=== PATIENT | female | born 1930 | race Caucasian/White ===

== ENCOUNTER 2018-10-08 17:47 | Inpatient (IN) ==
[2018-10-08] MEDS ORDERED: NACL 3% 500 ML IV SCH (21:13)
[2018-10-08] MEDS ORDERED: SAMSCA PO ONE (21:13)
[2018-10-08] MEDS ORDERED: CULTURELLE PO ONE (21:13)
[2018-10-08] MEDS: WELCHOL PO SCH (23:08)
[2018-10-08] MEDS: COMBIGAN OPHTH SOLN BOTH EYES SCH (23:09)
[2018-10-08 23:39] LABS: AGAP 13; BUN 13 mg/dL (8-22); CALCIUM 8.7 mg/dL (8.8-10.2); CHLORIDE 77 mmol/L (98-107); CK PROFILE 69 U/L (24-173); COSMO 236; CREATININE 0.4 mg/dL (0.5-0.9); ESTIMATED GFR > 60; GLUCOSE 119 mg/dL (70-104); TCO2 26 mmol/L (25-35)
[2018-10-08 23:44] LABS: POTASSIUM 5.4 mmol/L (3.5-5.1); SODIUM 116 mmol/L (136-145)
[2018-10-09] MEDS: NACL 3% 500 ML IV SCH ×3 (00:52→22:06)
--- NOTE | 2018-10-09 05:55 | Diag Imaging Result Doc PS360 ---
EXAM: CHEST-2 VIEWS HISTORY: SOB TECHNIQUE: Chest two views COMPARISON: 08/14/2018 FINDINGS: The lungs are hyperexpanded. There are small bilateral pleural effusions, left larger than right. There is mild pulmonary edema. Minimal cardiomegaly. No change in the left-sided portacatheter. No pneumothorax. There are small lung nodules. Mild scoliosis. IMPRESSION: 1.Emphysema 2.Small pleural effusions with mild pulmonary edema 3.Small lung nodules Electronically signed by Manan Orourke 10/09/2018 5:53 AM
--- NOTE | 2018-10-09 07:15 | EKG Report ---
Test Performed on : 10/08/2018 9:31:48 PM Test Reason : chest pain Blood Pressure : / mmHG Vent. Rate : 082 BPM Atrial Rate : 082 BPM P-R Int : 142 ms QRS Dur : 080 ms QT Int : 384 ms P-R-T Axes : 083 043 072 degrees QTc Int : 448 ms Sinus rhythm. with premature supraventricular complexes. Otherwise normal ECG When compared with ECG of 07-OCT-2015 16:31, premature supraventricular complexes. are now present T waves are prominent, consider hyperkalemia Confirmed by Vj MARTEL, Vincent Minor ([id number]) on 10/09/2018 5:51:39 PM
[2018-10-09 07:37] LABS: HEMATOCRIT 27.7 % (37.0-47.0); HEMOGLOBIN 9.2 g/dL (12.0-16.0); IMM GRAN# 0.06 X1000 (0.0-0.04); IMM GRAN% 3.4 % (0.0-0.5); LYMPH# 0.58 X1000 (1.2-3.4); MCH 28.5 PG (27-31); MCHC 33.2 g/dL (33-37); MCV 85.8 FL (81-99); MONO% 5.7 % (1.7-9.3); NEUT# 1.02 X1000 (1.4-6.5); NEUT% 57.9 % (42.2-75.2); PLT 173 X1000 (130-400); RBC 3.23 XMIL (4.2-5.4); RDW 14.9 % (11.5-14.5); WBC 1.76 X1000 (4.8-10.8)
[2018-10-09 07:51] LABS: AGAP 14; BUN 12 mg/dL (8-22); CALCIUM 9.2 mg/dL (8.8-10.2); CHLORIDE 83 mmol/L (98-107); COSMO 246; CREATININE 0.5 mg/dL (0.5-0.9); ESTIMATED GFR > 60; GLUCOSE 106 mg/dL (70-104); POTASSIUM 4.3 mmol/L (3.5-5.1); SODIUM 122 mmol/L (136-145); TCO2 25 mmol/L (25-35)
[2018-10-09 08:00] LABS: BANDS 12 % (0-1); LYMPHS 30 % (21-51); MONO 6 % (1-9); SEGS 52 % (42-75)
[2018-10-09 08:01] LABS: HYPOCHROM 1+; POIKILOCYTOSIS 1+
[2018-10-09] MEDS ORDERED: SAMSCA PO ONE (08:26)
[2018-10-09] MEDS: WELCHOL PO SCH ×3 (09:59→20:57)
[2018-10-09] MEDS: LUMIGAN 0.01% OPH SOLUTION OPH SCH (10:00)
[2018-10-09] MEDS: COMBIGAN OPHTH SOLN BOTH EYES SCH ×2 (10:00→20:50)
--- NOTE | 2018-10-09 13:49 | ECHO REPORT ---
ORDER DATE: 10/08/2018 INDICATION: Embolism. FINDINGS: 1. The right atrium appears normal in size at 3.2 cm. 2. Mild tricuspid regurgitation. RV systolic pressure of 59. 3. Normal RV size and systolic function. 4. Mild pulmonic insufficiency. 5. Suggestion of severe left atrial enlargement with a volume index of 50. 6. Heavy mitral annular calcification. Moderate mitral regurgitation. No clear evidence of significant mitral stenosis. 7. Normal LV size. End-diastolic dimension of 3.6. Mild left ventricular hypertrophy with a posterior and interventricular septal wall thickness of 1.3 and 1.4 cm respectively. Normal LV systolic function. Estimated EF in the 55% to 60% range. 8. There was heavy calcification of the aortic valve with suggestion of severe aortic stenosis. The peak gradient across the valve is 155 with a mean of 80. The valve area by continuity equation is 0.4 cm2. There is no clear evidence of insufficiency. 9. Aorta appears normal on visualized segments. 10. There is no pericardial effusion, but there does appear to be a pleural effusion present. cc: MD Nehemias Manning MD
--- NOTE | 2018-10-09 14:49 | HEMO/ONC CONSULTATION ---
DATE: 10/09/2018 CHIEF COMPLAINT: We are being consulted for further management of patient's CLL. HISTORY OF PRESENT ILLNESS: Ms. Serrano is a pleasant 88-year-old female that presented to the office yesterday complaining of increased amount of fatigue, continued feeling worse over the past few days. The patient was seen by primary medical doctor's office the week before due to same complaints of shortness of breath, and was told at that time had a chest x-ray and admitted for pneumonia. The patient felt like she could hopefully try taking antibiotics at home will continue to get better at that time. If she got worse, she would let them know. The patient symptoms continued to get worse, shortness of breath continued to get worse, and fatigue continued to get worse. The patient overall continued to decline and yesterday was sent to the hospital for further evaluation and treatment at that time. The patient is well known to us in our clinic where she follows up for her recurrent CLL, idiopathic thrombocytopenia and hypogammaglobulinemia. The patient has received multiple lines of therapy in the past. The patient was started on her on 12/23/2015 and stopped in on . The patient was then started back on Imbruvica on 05/23/2007 due to worsening lymphadenopathy and left supraclavicular axillary. The patient then had progression of disease and changed to Venclexta on 04/03/2018 and rituximab was added as well. The patient has currently been on Venclexta and received her last dose of rituximab on 09/26/2018. The patient also continues to get her Octagam every 4 weeks and received her last dose of Octagam 09/25/2018. PAST MEDICAL HISTORY: Relapsed refractory CLL, hypogammaglobulinemia with recurrent infections, history of ITP and Sjogren syndrome. FAMILY HISTORY: Noncontributory. SOCIAL HISTORY: Denies any alcohol, tobacco, or illicit drug use. ALLERGIES: Allopurinol, sulfa, Levaquin. CURRENT MEDICATIONS: As in the chart. REVIEW OF SYSTEMS: As per HPI. PHYSICAL EXAM: Vital Signs: Temperature 97.3 degrees, heart rate 81, respiratory rate 28, blood pressure is 126/59, satting 99% on room air. General: Patient is awake, lying in bed, no acute distress noted. HEENT: Anicteric. Pupils PERRLA. Mucous membranes appear to be dry. Neck: Supple. Trachea midline. No JVD. Lymphatic survey: No palpable adenopathy in axillary. Chest: Bilateral breath sounds diminished bilaterally. Cardiovascular: Normal S1 and S2. Regular rate and rhythm. Abdomen: Soft, nontender. Bowel sounds present in all 4 quadrants. Skin: Warm, dry, and intact. Neurologic: Alert and oriented x3. No focal deficits noted. LABORATORY DATA: White blood cell count is 1.76, hemoglobin 9.2, hematocrit 27.7, platelets are 173. Sodium is 122, potassium 4.3, BUN 12, creatinine 0.5. RADIOLOGY RESULTS: Chest x-ray shows emphysema, small pleural effusions with mild pulmonary edema and some small lung nodules. ASSESSMENT AND PLAN: 1. Recurrent chronic lymphocytic leukemia, ZAP-70 positive: The patient has been on venclexta and Rituxan; last dose of Rituxan was on 09/26/2018. Continue to monitor closely. 2. Hyponatremia: Patient continues intravenous fluids as ordered by primary medical team. 3. Neutropenia: Continue to monitor white blood cell counts very closely. Continue to monitor any fevers greater than 100.5. 4. Hypogammaglobulinemia with Morganella, sepsis or recurrent infections: The patient received IVIG every 4 weeks. Next dose will be due 10/23/2018. Plan of care discussed with Dr. Huerta. Dictated by FAWAD Basurto for Sandoval Huerta MD Patient seen and examined. As above. Patient with CLL, has gone through multiple lines of chemotherapy. Lately her CLL has been very troubling. She is currently on rituximab and Venclexta. She seems to be responding. Lymphadenopathy is slowly decreasing. She is admitted with severe hyponatremia. Further management per Dr. Rey. Sandoval Huerta M.D. cc: FAWAD Basurto MD Jagan Reddy, MD MTDD
--- NOTE | 2018-10-09 15:43 | HISTORY AND PHYSICAL ---
SUBJECT: 1. Shortness of breath, cough, wheezing, swelling of feet. 2. Altered mental status. 3. Hyponatremia. HPI: She is an 88-year-old pleasant white female with known history of CLL with lymphoma under the chemotherapy by DR. Huerta. She was evaluated in my office on for above symptoms. Apparently she has mild CHF. Patient was given extra Lasix and follow up as an outpatient. She has significant aortic stenosis murmur and she denies of any syncope, chest pain and apparently today at DR. Huerta's office patient has significant hyponatremia, altered mental status, persistent cough, admitted to the hospital. Patient was admitted directly from DR. Huerta's office. Patient was seen in the emergency room and she slightly edematous in the legs. Slightly improving. As a result hospital admission was warranted. PAST MEDICAL HISTORY: Aortic stenosis, hypertension, glaucoma, sicca syndrome , CLL with lymphoma, lumbar spinal stenosis, recurrent C difficile colitis. PAST SURGICAL HISTORY: Benign breast biopsy, benign right knee arthroscopy status post total knee arthroplasty, bilateral cataract surgery, Port-A-Cath on the left side. ALLERGIES: Allopurinol, IV contrast, Levaquin and sulfa. 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 FAMILY HISTORY: Father of stomach cancer at 44, mom of heart failure. HEALTH MAINTENANCE: Living will, DNR. Flu vaccine 2018, pneumococcal vaccine 2016, last mammography, DEXA scan 2016. MEDICATIONS: Reported are Combigan drops as needed, Lumigan 1 drop q.8, Uloric 40 daily, Culturelle 1 capsule daily, Lotemax 1 drop every other day, Lasix 40 mg as directed, Welchol 625 daily, Venclexta [address] Huerta along with Rituxan every 4 weeks. REVIEW OF SYSTEMS: HEENT: No headache. No vision problem. No earache. No sore throat. Neck: No neck pain. Cardiopulmonary: Persistent cough, shortness of breath , wheezing, mild swelling of feet . GI: No nausea, vomiting, abdominal pain, no altered bowel habits. Diarrhea is much improved after treating with Dificid for C difficile infection. : No history of hesitancy, frequency, dysuria, lymphadenopathy, left side of the axilla node is not improving and no significant peripheral adenopathy. Neurologic: No focal symptoms or weakness. PHYSICAL EXAMINATION: Temperature 97 degrees, pulse is 80, vitals are stable, 100% on room air. HEENT: Atraumatic, normocephalic. Pupils equal, reactive to light. TMs are normal. Nose and throat within normal limits. NECK: Supple. JVD is elevated. CHEST: Bilateral air entry. HEART: Sounds are regular with a loud systolic murmur all over the precordial area increasing with expiration. BELLY: Is soft, nontender. No hepatosplenomegaly. Left axilla lymph node palpable and trace pedal edema. No obvious neurological deficits. INVESTIGATIONS: None reported from Dr. Huerta's office. ASSESSMENT AND PLAN: 1. An 88-year-old white female admitted to the hospital with congestive heart failure, diastolic dysfunction with underlying severe aortic stenosis. Will check the echocardiography, follow up on the labs. Will give 1 dose of Samsca and hypertonic saline for hyponatremia, repeat the labs in the morning. 2. Chronic lymphocytic leukemia with lymphoma stable. 3. Clostridium difficile colitis recurrent, stable. 4. Reconcile home medicines. 5. Will also get echocardiography. Discussed with the family at bedside. She does have living will, do not resuscitate and consult with Dr. Huerta and will follow up. cc: Nehemias Rey MD [facility]
--- NOTE | 2018-10-10 00:18 | PROGRESS NOTE ---
DATE: 10/09/2018 SUBJECTIVE: The patient is not doing well. Confused. Shortness of breath, PND, orthopnea, hypoxemia, and mild swelling. She is slowly declining in performance status. EXAM: Vital Signs: Temperature is 98 degrees, pulse is 86, blood pressure is stable. HEENT: Within normal limits. Neck: JVD is elevated. Chest: Bilateral air entry. Heart: Sounds are regular, with a loud systolic murmur in the aortic area. Abdomen: Belly is soft, nontender. Extremities: 1+ edema. LABS: White cell count 1.6, hematocrit 27, platelets 173,000. Sodium 132, potassium 4.3, BUN 12, creatinine 0.5. Urine osmolality is low. ProBNP 5000. Urine sodium 19. EKG is normal sinus, nothing acute. Echocardiography findings: Severe aortic stenosis, [id number] MR, with severe enlargement of left atrium, with ejection fraction 55 to 60 percent. Chest x-ray: Bilateral pleural effusion. ASSESSMENT AND PLAN: 1. Acute decompensated diastolic heart failure, with severe aortic stenosis. Needs a valve replacement. Discussed with the family. Patient is not a candidate for transcatheter aortic valve replacement because of decline in performance status. 2. Congestive heart failure. Continue on Samsca. 3. Hyponatremia. Gentle hypertonic saline. Check the SMA-7 in the morning. 4. Living will, DNR. 5. Recurrent C. difficile colitis. Stable. 6. Mental confusion due to metabolic encephalopathy. Continue on Seroquel as needed. LEVEL OF DOCUMENTATION: 25 minutes. cc: Nehemias Rey MD
[2018-10-10] MEDS: SEROQUEL PO PRN ×2 (00:46→21:39)
[2018-10-10 07:38] LABS: HEMATOCRIT 24.3 % (37.0-47.0); HEMOGLOBIN 7.6 g/dL (12.0-16.0); IMM GRAN# 0.24 X1000 (0.0-0.04); IMM GRAN% 18.5 % (0.0-0.5); LYMPH# 0.34 X1000 (1.2-3.4); LYMPH% 26.2 % (20.5-51.1); MCH 28.3 PG (27-31); MCHC 31.3 g/dL (33-37); MCV 90.3 FL (81-99); MONO# 0.09 X1000 (0.11-0.59); MONO% 6.9 % (1.7-9.3); MPV 8.8 FL (7.4-10.4); NEUT# 0.63 X1000 (1.4-6.5); NEUT% 48.4 % (42.2-75.2); PLT 133 X1000 (130-400); RBC 2.69 XMIL (4.2-5.4); RDW 15.2 % (11.5-14.5)
[2018-10-10 07:59] LABS: AGAP 11; BUN 11 mg/dL (8-22); CALCIUM 8.5 mg/dL (8.8-10.2); CHLORIDE 101 mmol/L (98-107); COSMO 278; CREATININE 0.5 mg/dL (0.5-0.9); ESTIMATED GFR > 60; GLUCOSE 156 mg/dL (70-104); POTASSIUM 3.8 mmol/L (3.5-5.1); SODIUM 138 mmol/L (136-145); TCO2 26 mmol/L (25-35)
--- NOTE | 2018-10-10 07:59 | Diag Imaging Result Doc PS360 ---
EXAM: CHEST-2 VIEWS INDICATION: hypoxia TECHNIQUE: 2 views COMPARISON: 10/08/2018 FINDINGS: The left chest port is in stable position. There has been interval development of a dense consolidation in the right upper lobe consistent with pneumonia. Pleural effusions and mild edema are essentially stable. Cardiac silhouette is stable. IMPRESSION: Interval development of right upper lobe pneumonia. Electronically signed by Rolando Oliva 10/10/2018 7:56 AM
[2018-10-10] MEDS: NACL 3% 500 ML IV SCH (08:16)
[2018-10-10] MEDS: COMBIGAN OPHTH SOLN BOTH EYES SCH ×2 (08:17→21:55)
[2018-10-10] MEDS: LUMIGAN 0.01% OPH SOLUTION OPH SCH ×2 (08:17→21:55)
[2018-10-10] MEDS: WELCHOL PO SCH ×3 (08:17→21:55)
[2018-10-10] MEDS ORDERED: LASIX IV ONE (08:19)
--- NOTE | 2018-10-10 08:52 | HEMO/ONC PROGRESS NOTE ---
DATE: 10/10/2018 SUBJECTIVE: Patient complains of still being extremely weak. She is still short of breath. Gets very short of breath with exertion still as well. The patient says she may feel slightly better overall though. OBJECTIVE: Vital Signs: Temperature 97.9 degrees, heart rate 88, respiratory rate 24, blood pressure is 131/71, and saturating 99% on nasal cannula. General: Patient is awake, sitting up in chair beside the bed. HEENT: Anicteric. Pupils PERRLA. Mucous membranes noted to be dry. Cardiovascular: S1, S2. Increased rate and rhythm. Chest: Bilateral breath sounds, diminished bilaterally. Abdomen: Soft, nontender. Bowel sounds present in all 4 quadrants. Neurologic: Alert and oriented x3. No focal deficits noted. LABORATORY DATA: White blood cell count is 1.30, hemoglobin 7.6, hematocrit 24.3, platelets are 133. ANC is 630. Potassium 3.8, sodium is 138, BUN 11, creatinine 0.5. ASSESSMENT AND PLAN: 1. Recurrent chronic lymphocytic leukemia, ZAP-70 positive: The patient has been on vincristine and Rituxan. Will continue to monitor closely at this time. 2. Hyponatremia: Sodium continues to improve. Continue recommendations per primary medical team. 3. Neutropenia: White blood cell count continues to drop. ANC count is down to 630. The patient will receive Neupogen daily at this time until ANC is greater than a 1000. Continue to monitor closely if fever is greater than 100.5. 4. Congestive heart failure: Continue recommendations per medical team. 5. Deep venous thrombosis prophylaxis: Patient will continue get out of bed as much as possible. The patient is started on Lovenox 30 mg daily. 6. Supportive care: Patient will continue protein shakes q.i.d. Physical therapy has been consulted to have patient be strength training and getting out of bed. Plan of care discussed with Dr. Huerta. Dictated by FAWAD Basurto for Sandoval Huerta MD Patient seen and examined. As above. Patient had worsening shortness of breath overnight. Chest x-ray revealed increasing pulmonary congestion. He has been on normal saline. That has been discontinued. Leg edema also has worsened. About 60 minutes ago, he received IV Lasix. He reports that her shortness of breath has improved in the meanwhile. Cardiology and pulmonary medicine has been consulted. Check CEA to make sure his cancer is not getting worse. Sandoval Huerta M.D. cc: FAWAD Basurto MD Jagan Reddy, MD [facility]
[2018-10-10] MEDS ORDERED: NEUPOGEN SUBQ SCH (09:00)
[2018-10-10] MEDS ORDERED: GRANIX SUBQ SCH (09:00)
[2018-10-10] MEDS: LOVENOX SUBQ SCH (11:38)
--- NOTE | 2018-10-11 03:44 | PROGRESS NOTE ---
DATE: 10/10/2018 SUBJECTIVE: The patient is not better. Last night, confused, shortness of breath. PHYSICAL EXAMINATION: Temperature is 98 degrees, pulse is 76, blood pressure is 119/50. HEENT: Within normal. JVD is elevated. Bilateral air entry. Heart sounds are regular with a loud systolic murmur. Belly is soft, nontender. Decreased edema. INVESTIGATIONS: White cell count 1.3, hematocrit 24, platelets 133,000. SMA-7 is normal. Chest x-ray: Worsening of the pleural effusion. ASSESSMENT AND PLAN: 1. Congestive heart failure with symptomatic aortic stenosis. Not a candidate for surgical intervention. 2. Hyponatremia, improving. Discontinue hypertonic saline. 3. Worsening of fluid. IV Lasix. 4. Pancytopenia due to chemotherapy. 5. Chronic lymphocytic leukemia with lymphoma. Hold on chemotherapy. The patient was given Granix. We will repeat the chest x-ray and the labs in the morning. Discussed the findings of the echo to the patient's family. 6. Living will, do not resuscitate. 7. Recurrent Clostridium difficile colitis, stable. Continue on probiotics. PROGNOSIS: Poor. LEVEL OF DOCUMENTATION: 25 minutes. cc: Nehemias Rey MD
[2018-10-11 06:55] LABS: HEMATOCRIT 22.6 % (37.0-47.0); IMM GRAN% 19.5 % (0.0-0.5); LYMPH% 26.3 % (20.5-51.1); MCH 28.2 PG (27-31); MCV 91.1 FL (81-99); MONO% 17.8 % (1.7-9.3); MPV 9.3 FL (7.4-10.4); NEUT% 36.4 % (42.2-75.2); PLT 105 X1000 (130-400); RBC 2.48 XMIL (4.2-5.4); RDW 15.2 % (11.5-14.5); WBC 1.18 X1000 (4.8-10.8)
[2018-10-11 06:56] LABS: IMM GRAN# 0.23 X1000 (0.0-0.04); LYMPH# 0.31 X1000 (1.2-3.4); MONO# 0.21 X1000 (0.11-0.59)
[2018-10-11 06:59] LABS: NEUT# 0.43 X1000 (1.4-6.5)
[2018-10-11 07:07] LABS: AGAP 12; BUN 11 mg/dL (8-22); CHLORIDE 92 mmol/L (98-107); COSMO 266; CREATININE 0.6 mg/dL (0.5-0.9); ESTIMATED GFR > 60; GLUCOSE 138 mg/dL (70-104); POTASSIUM 3.3 mmol/L (3.5-5.1); SODIUM 132 mmol/L (136-145); TCO2 28 mmol/L (25-35)
[2018-10-11 07:48] LABS: BANDS 4 % (0-1); LYMPHS 24 % (21-51); MONO 4 % (1-9); SEGS 64 % (42-75)
[2018-10-11] MEDS ORDERED: GRANIX SUBQ ONE (08:00)
[2018-10-11] MEDS ORDERED: LASIX IV ONE (08:08)
--- NOTE | 2018-10-11 08:11 | Diag Imaging Result Doc PS360 ---
EXAM: CHEST-2 VIEWS 10/11/2018 HISTORY: hypoxia TECHNIQUE: PA and lateral chest COMMENT: There are bilateral pleural effusions. There is dense alveolar opacity in the inferior portion of the right upper lobe. There is also opacity in both lower lobes. IMPRESSION: Bibasilar pneumonia and pleural effusions with right upper lobe pneumonia. This is not changed significantly since 10/10/2018. Electronically signed by Ki Edwards 10/11/2018 8:09 AM
--- NOTE | 2018-10-11 08:45 | HEMO/ONC PROGRESS NOTE ---
DATE: 10/11/2018 SUBJECTIVE: The patient is still complaining of feeling weak, still short of breath. The patient says short of breath improves when she gets out of bed and continues to sit up, not lying in bed. It is always worse in the mornings. OBJECTIVE: Vital Signs: Temperature 98.2 degrees, heart rate 94, respiratory 16, blood pressure 118/66, saturating 97% on nasal cannula. General: Patient is awake, sitting up in a chair beside the bed. HEENT: Anicteric. Pupils PERRLA. Mucous membranes dry. Chest: Bilateral breath sounds diminished bilaterally. Cardiovascular: Heart sounds regular with a loud murmur. Abdomen: Soft, nontender. Bowel sounds present in all 4 quadrants. Neurologic: Alert and oriented x3. No focal deficits noted. LABORATORY DATA: White cell count 1.18, hemoglobin 7.2, hematocrit 22.6, platelets are 105, ANC 430. Sodium 132, potassium 3.3, BUN 11, creatinine 0.6. ASSESSMENT AND PLAN: 1. Recurrent chronic lymphocytic leukemia, ZAP-70 positive. The patient will continue to monitor at this time. 2. Hyponatremia: Site continues to be stable. Continue recommendation by primary medical team. 3. Neutropenia: ANC down to 430. The patient will continue on her Neupogen daily. We will continue until patient's ANC is greater than a 1000. She will be continued to be monitor closely for any fevers greater than 100.5. 4. Congestive heart failure: Continue recommendations per primary medical team. 5. Supportive care: Continue to have patient drink protein shakes q.i.d. Continue with physical therapy. Continue to have patient get out of bed as much as possible. 6. Anemia: Hemoglobin and hematocrit continue to drop. The patient denies any signs of bleeding. Transfuse as needed. Dictated by FAWAD Basurto for Sandoval Huerta MD Patient seen and examined. As above. Patient has developed neutropenia. Hold Venclexta. Continue Neupogen until ANC recovery. She has critical symptomatic aortic stenosis. Prognosis is poor. We will discuss with Dr. Rey regarding long-term management. Family understands her prognosis. Sandoval Huerta M.D. cc: Nehemias Rey MD [facility]
[2018-10-11] MEDS: WELCHOL PO SCH ×3 (10:18→21:42)
[2018-10-11] MEDS: LOVENOX SUBQ SCH (10:21)
[2018-10-11] MEDS: COMBIGAN OPHTH SOLN BOTH EYES SCH ×2 (15:24→21:42)
[2018-10-11] MEDS ORDERED: KLOR-CON POWDER PACKET PO ONE (19:47)
[2018-10-11] MEDS ORDERED: SAMSCA PO ONE (20:00)
[2018-10-11] MEDS: LUMIGAN 0.01% OPH SOLUTION OPH SCH (21:42)
--- NOTE | 2018-10-12 00:19 | PROGRESS NOTE ---
DATE: 10/11/2018 SUBJECTIVE: The patient is not doing well. Unable to sleep. She has been on the recliner all day. She still has shortness of breath. I& O was not recording properly. Family was at bedside. I have seen the patient twice. Spent about more than 30 minutes at bedside with the patient's daughter about the echocardiography report, chest x-rays report. PHYSICAL EXAMINATION: Vital Signs: Temperature is 98 degrees, tachycardic. Blood pressure is 104/36. Patient barely able to go to the bathroom. She is very declining precipitously. Neck: JVD is elevated. Heart: Heart sounds are regular, with a loud systolic murmur throughout the precordial area. Abdomen: Belly is soft, nontender. Extremities: Unchanged lymphadenopathy in the left axilla. 2+ pedal edema. IMAGING DATA: Chest x-ray: Continued bilateral pleural effusion and right fluid in the major fissure. LABS: CBC: White cell count 1.1, hematocrit 22.6, platelets 105,000. SMA-7: Sodium 132, potassium 3.3, BUN and creatinine normal. ASSESSMENT AND PLAN: 1. Acute decompensated diastolic heart failure, with severe aortic stenosis. 2. Pancytopenia, due to chemotherapy. 3. Chronic lymphocytic leukemia, with lymphoma. 4. Recurrent C. difficile colitis. Stable. 5. Hypokalemia. Plan of care today: Continue fluid restriction, oxygen, and IV Lasix daily, along with the Samsca. Potassium replacement. 6. Seroquel for agitation. 7. DVT prophylaxis with Lovenox. 8. Glaucoma. Stable. 9. Continue IV Lasix. Check the labs in the morning. 10. Pancytopenia. Granix was given. 11. Severe aortic stenosis. She is not a candidate for TAVR. 12. Deconditioning. 13. Living will, DNR. 14. Continue to monitor her progress. 15. Family is ready for any dire situation if she does not improve. LEVEL OF DOCUMENTATION: 25 minutes. cc: Nehemias Rey MD MTDD
[2018-10-12 07:29] LABS: HEMATOCRIT 23.2 % (37.0-47.0); HEMOGLOBIN 7.2 g/dL (12.0-16.0); LYMPH# 0.25 X1000 (1.2-3.4); LYMPH% 22.1 % (20.5-51.1); MCH 28.1 PG (27-31); MCV 90.6 FL (81-99); MONO# 0.03 X1000 (0.11-0.59); MONO% 2.7 % (1.7-9.3); MPV 10.3 FL (7.4-10.4); NEUT# 0.85 X1000 (1.4-6.5); NEUT% 75.2 % (42.2-75.2); PLT 76 X1000 (130-400); RBC 2.56 XMIL (4.2-5.4); RDW 15.3 % (11.5-14.5); WBC 1.13 X1000 (4.8-10.8)
[2018-10-12 08:19] LABS: AGAP 13; BUN 16 mg/dL (8-22); CALCIUM 8.3 mg/dL (8.8-10.2); CHLORIDE 91 mmol/L (98-107); COSMO 270; CREATININE 0.6 mg/dL (0.5-0.9); ESTIMATED GFR > 60; GLUCOSE 145 mg/dL (70-104); SODIUM 133 mmol/L (136-145); TCO2 29 mmol/L (25-35)
--- NOTE | 2018-10-12 08:26 | HEMO/ONC PROGRESS NOTE ---
DATE: 10/12/2018 SUBJECTIVE: Patient up out of bed, sitting in a chair. The patient says she still feels weak, still slightly short of breath. The patient says she is slowly feeling stronger though. OBJECTIVE: Vital Signs: Temperature 97.4 degrees, heart rate 96, respiratory rate 24, blood pressure 95/45, saturation 95% on nasal cannula. General: The patient is awake , sitting up in the chair at the side of the bed. No acute distress noted. HEENT: Anicteric. PERRLA. Mucous membranes appear to be dry. Cardiovascular: S1, S2. Regular rate and rhythm. Chest: Breath sounds diminished bilaterally. Abdomen: Soft, nontender. Bowel sounds present in all 4 quadrants. Neurologic: Alert and oriented x3. No focal deficits noted. LABORATORY DATA: White blood cell count 1.13, hemoglobin 7.2, hematocrit 23.2, platelets 76,000. ANC 850. ASSESSMENT AND PLAN: 1. Recurrent chronic lymphocytic leukemia, ZAP-70 positive. Venclexta is on hold due to neutropenia. Continue to monitor at this time. 2. Neutropenia: Absolute neutrophil count slowly trending upward. Today it is 850. Continue Neupogen daily until absolute neutrophil count is greater than 1000. Continue to monitor very closely for any fever greater than 100.5. 3. Anemia: This is due to her chemotherapy at this time. Continue to hold Venclexta. Continue to monitor closely. Transfuse as needed. 4. Acute decompensated diastolic heart failure and severe aortic stenosis: Continue recommendations per primary medical team. Condition is declining. No good options. 5. Supportive care: Continue to have patient drink Proteinex 4 times a day. Continue with physical therapy. Continue to have patient get out of bed as much as possible. Dictated by FAWAD Basurto for Sandoval Huerta MD Patient seen and examined. As above. Patients condition continues to decline. Family has decided to proceed with comfort measures. They are planning to take her home today and home health care has been engaged. Hospice is also appropriate. Chemotherapy has been discontinued. Sandoval Huerta M.D. cc: FAWAD Basurto MD Jagan Reddy, MD [facility]
--- NOTE | 2018-10-12 08:56 | Diag Imaging Result Doc PS360 ---
EXAM: CHEST-2 VIEWS HISTORY: hypoxia TECHNIQUE: Chest two views COMPARISON: 10/11/2018 FINDINGS: Dense infiltrates remain in the mid right lung. Infiltrates persist in the lung bases although they are less dense than on the prior study. Small pleural effusions remain. No cardiomegaly. Lungs are hyperexpanded. No change in the left-sided portacatheter. No pneumothorax. IMPRESSION: 1.Persistent bilateral infiltrates although there has been improvement in the lung bases 2.Emphysema Electronically signed by Manan Orourke 10/12/2018 8:54 AM
[2018-10-12] MEDS ORDERED: GRANIX SUBQ SCH (09:00)
[2018-10-12] MEDS ORDERED: LASIX IV SCH (09:00)
[2018-10-12] MEDS: LOVENOX SUBQ SCH (11:02)
[2018-10-12] MEDS: WELCHOL PO SCH ×2 (11:03→14:00)
[2018-10-12] MEDS: COMBIGAN OPHTH SOLN BOTH EYES SCH (11:03)
[2018-10-12 11:52] VITALS: BP 89/39
--- NOTE | 2018-10-13 23:45 | DISCHARGE SUMMARY ---
ADMISSION DATE: 10/08/2018 DISCHARGE DATE: 10/12/2018 DISCHARGING DIAGNOSIS: Acute shortness of breath due to diastolic heart failure with severe aortic stenosis due to calcification. SECONDARY DIAGNOSIS: 1. Altered mental status due to metabolic encephalopathy. 2. Hyponatremia due to diuresis. 3. Glaucoma 4.sicca syndrome, 5.chronic lymphocytic leukemia with lymphoma, 6. pancytopenia due to chemotherapy. 7. Lumbar spinal stenosis. 8. Recurrent Clostridium difficile colitis. CONSULTS: Dr. Huerta. BRIEF HISTORY: Please see the H and P that was done on 10/08/2018. In brief she is 88-year-old white female has progressively declining from recent relapse of CLL with lymphoma under chemotherapy by Dr. Huerta with Rituxan and Venclexta. Patient has a port on the left side of the chest. For the last few days patient has shortness of breath due to congestive heart failure. Patient was given Lasix. Subsequently she is confused, sodium levels 116. Patient was admitted to the hospital for further treatment. HOSPITAL COURSE: For hyponatremia patient was given fluid restriction, Samsca and slowly hypertonic saline. Follow up sodium levels came back normal. Patient continues to have congestive heart failure on the chest x-ray worsening in the right upper lobe due to fluid accumulation and also significant systolic murmur all over the precordial area. Echocardiography showed severe aortic stenosis, estimated aortic valve area 0.4 squared cm. Other options were discussed. Patient is not a candidate for any surgical intervention. Patient continues to be declining. Unable to sleep basically sitting up in the recliner. Patient has a living will, DNR. She has a history of recurrent C difficile colitis for which probiotics was given. Family decided since her conditions deemed to be terminal stopped chemotherapy with all other comorbid condition they want take her home with palliative care with hospice. Patient was discharged home with outpatient hospice service with the following instructions. Oxygen as needed, Lasix as needed, eye drops as directed, comfort care. Prescriptions was given. Will continue to stop chemotherapy and Uloric and probiotics and basically comfort care. Living will, DNR. Will resume outpatient hospice care through the [facility] meetings. Family is agreeable. cc: MD SURESH Nathan
== END 2018-10-12 14:15 | disposition hospice, home (50) | DRG 291 ==
LOC: 3N 19:14
PROVIDERS: ADMIT Internal Medicine; ATTEND Internal Medicine
CPT/HCPCS: 71020; 71046; 80048; 82550; 83880; 83935; 84300; 84484; 85025; 93005; 93010; 93306; 97162; 97530; A9270; J1446; J1447; J1650; J1940